=== PATIENT | female | born 1995 | race American Indian/Alaskan Native ===

== ENCOUNTER 2019-01-13 02:57 | Emergency (ER) | payer OTHER ==
[2019-01-13 03:09] VITALS: BP 112/79
--- NOTE | 2019-01-13 04:39 | Emergency Department Report ---
ED Eye Problem HPI - General Chief complaint: Eye Problems Stated complaint: EYE PAIN Time Seen by Provider: 01/13/19 03:40 Source: patient Mode of arrival: Ambulatory Limitations: No Limitations - History of Present Illness Initial comments: Pt is a 23 yo female who presents to the ED with c/o right eye pain that began two days ago. She states she has a stye to the right lower eyelid. she states last week she had one to the upper eyelid and she used OTC eye drops and it resolved on its own. She states she has noticed a small amount of eye drainage. She denies any eyelash matting, fever, or vision changes. She denies getting anything into the eye. she has no PMHx. she denies any medication allergies. she denies any daily medications. - Related Data Previous Rx's Medication Instructions Recorded Last Taken Type Erythromycin [Erythromycin Ophth 0.5 inch OD QID 5 Days #1 tube 01/13/19 Unknown Rx Oint] diphenhydrAMINE [Benadryl CAP] 25 mg PO Q8HR PRN #14 capsule 01/13/19 Unknown Rx Allergies Allergy/AdvReac Type Severity Reaction Status Date / Time No Known Allergies Allergy Unverified 11/21/15 14:59 ED Review of Systems ROS: Stated complaint: EYE PAIN Other details as noted in HPI Comment: All other systems reviewed and negative ED Past Medical Hx - Past Medical History Previous Medical History?: Yes Hx Asthma: Yes (child) - Surgical History Past Surgical History?: No - Social History Smoking Status: Current Every Day Smoker Substance Use Type: Alcohol - Medications Home Medications: Home Medications Medication Instructions Recorded Confirmed Last Taken Type Erythromycin [Erythromycin Ophth 0.5 inch OD QID 5 Days #1 tube 01/13/19 Unknown Rx Oint] diphenhydrAMINE [Benadryl CAP] 25 mg PO Q8HR PRN #14 capsule 01/13/19 Unknown Rx ED Physical Exam - General Limitations: No Limitations General appearance: alert, in no apparent distress - Head Head exam: Present: atraumatic, normocephalic - Eye Eye exam: Present: PERRL, other (small area of induration to the right lower eyelid, no fluctuance, small amount of surrouding edema to the right lower eyelid, small amount of purulent eye drainage in the corner of the eye). Absent: conjunctival injection - Respiratory Respiratory exam: Absent: respiratory distress - Neurological Exam Neurological exam: Present: alert, oriented X3 - Psychiatric Psychiatric exam: Present: normal affect, normal mood - Skin Skin exam: Present: warm, dry, intact ED Course Vital Signs 01/13/19 01/13/19 03:04 04:50 Temperature 97 F L Pulse Rate 71 69 Respiratory 18 15 Rate Blood Pressure 112/79 O2 Sat by Pulse 100 Oximetry ED Medical Decision Making - Medical Decision Making on examination pt has an external hordeolum of the right lower lid. pt given erythromycin ointment. advised to use as prescribed. pt given benadryl for small amount of surrounding swelling of the lower lid. advised to follow up with PCP in the next 2-3 days for reevaluation. return to the emergency room for any new or worsening symptoms. pt given list of community resources. Critical care attestation.: If time is entered above; I have spent that time in minutes in the direct care of this critically ill patient, excluding procedure time. ED Disposition Clinical Impression: Hordeolum external Qualifiers: Laterality: right Eyelid: lower Qualified Code(s): H00.012 - Hordeolum externum right lower eyelid Disposition: DC-01 TO HOME OR SELFCARE Is pt being admited?: No Does the pt Need Aspirin: No Condition: Stable Instructions: Sindy (ED) Additional Instructions: Please use all medication as prescribed. please follow up with a primary care doctor in the next 2-3 days for reevaluation. return to the emergency room for any new or worsening symptoms. Prescriptions: diphenhydrAMINE [Benadryl CAP] 25 mg PO Q8HR PRN #14 capsule PRN Reason: swelling Erythromycin [Erythromycin Ophth Oint] 0.5 inch OD QID 5 Days #1 tube Referrals: TIAGO MATHEWS MD [Primary Care Provider] - 2-3 Days Forms: Work/School Release Form(ED) Time of Disposition: 04:39 Print Language: WELSH
== END 2019-01-13 04:50 | disposition home or self-care (01) ==
LOC: ED 02:57
DX: H00.012 Hordeolum externum right lower eyelid (principal); F17.200 Nicotine dependence, unspecified, uncomplicated; J45.909 Unspecified asthma, uncomplicated

== ENCOUNTER 2019-03-29 14:59 | Emergency (ER) | payer OTHER ==
[2019-03-29 15:40] VITALS: BP 105/62
--- NOTE | 2019-03-29 15:41 | Event Note ---
ED Screening Note Date of service: 03/29/19 Time: 15:37 ED Screening Note: 23 y/o female comes in for lower abd pain times 2 week. No pain with urination, Urinary frequency. No vag bleeding, No vaginal discharge. LMP 02/11/19. +home preg test. This initial assessment/diagnostic orders/clinical plan/treatment(s) is/are subject to change based on patients health status, clinical progression and re- assessment by fellow clinical providers in the ED. Further treatment and workup at subsequent clinical providers discretion. Patient/guardian urged not to elope from the ED as their condition may be serious if not clinically assessed and managed. Initial orders include:
[2019-03-29 16:02] LABS: Bilirubin,Urine NEG (Negative); Blood,Urine NEG (Negative); Color,Urine Straw (Yellow); Protein,Urine <15 mg/dL mg/dL (Negative); Urobilinogen,Urine < 2.0 mg/dL (<2.0)
--- NOTE | 2019-03-29 17:23 | Emergency Department Report ---
HPI - General Chief Complaint: Abdominal Pain Time Seen by Provider: 03/29/19 15:37 - HPI HPI: 23 YO COMES TO ER WITH 2 W OF OFF AND ON CRAMPS. LMP 6-21. POS HOME PREG TEST. G1. NO VAG BLEEDING OR DISCHARGE. NO DYSURIA OR FREQUENCY. THE PT ADDS TODAY SHE IS NOT EVEN HAVING CRAMPS SHE JUST WANTS TO MAKE SURE SHE IS . ED Past Medical Hx - Past Medical History Previous Medical History?: Yes Hx Asthma: Yes (child) - Surgical History Past Surgical History?: No - Family History Family history: no significant - Social History Smoking Status: Never Smoker Substance Use Type: None - Medications Home Medications: Home Medications Medication Instructions Recorded Confirmed Last Taken Type Ondansetron [Zofran Odt] 4 mg PO Q8HR PRN #10 tab.rapdis 03/29/19 Unknown Rx ED Review of Systems ROS: Stated complaint: ABD PAIN/POSSIBLE Other details as noted in HPI Comment: All other systems reviewed and negative Physical Exam - Physical Exam Vital Signs: Vital Signs 03/29/19 03/29/19 15:37 17:08 Temperature 98.2 F Pulse Rate 72 Respiratory 18 16 Rate Blood Pressure 105/62 O2 Sat by Pulse 100 Oximetry ED Course Vital Signs 03/29/19 03/29/19 15:37 17:08 Temperature 98.2 F Pulse Rate 72 Respiratory 18 16 Rate Blood Pressure 105/62 O2 Sat by Pulse 100 Oximetry ED Medical Decision Making - Radiology Data Radiology results: report reviewed, image reviewed - Medical Decision Making hcg pending 1730 however ultrasound has been completed us noted no vag bleeding dc home with obgyn follow up in 48 hours. Vital Signs 03/29/19 03/29/19 15:37 17:08 Temperature 98.2 F Pulse Rate 72 Respiratory 18 16 Rate Blood Pressure 105/62 O2 Sat by Pulse 100 Oximetry - Differential Diagnosis CONFIRM PREG/RO AB Critical care attestation.: If time is entered above; I have spent that time in minutes in the direct care of this critically ill patient, excluding procedure time. ED Disposition Clinical Impression: Disposition: DC-01 TO HOME OR SELFCARE Is pt being admited?: No Does the pt Need Aspirin: No Condition: Stable Instructions: (ED) Additional Instructions: PELVIC REST NO DRUGS OR ALCOHOL OVER THE COUNTER VITAMIN DAILY ZOFRAN GIVEN TODAY FOR NAUSEA FOLLOW UP WITH OBGYN IN 48 HOURS FOR RECHECK LET THEM KNOW YOU WERE HERE TODAY REFERRAL BELOW Prescriptions: Ondansetron [Zofran Odt] 4 mg PO Q8HR PRN #10 tab.rapdis PRN Reason: Vomiting Referrals: CHANEL THACKER MD [Staff Physician] - 3-5 Days Time of Disposition: 17:35
--- NOTE | 2019-03-29 17:30 | Ultrasound Report ---
US OB transvaginal, US OB <= 14 weeks fetus INDICATION / CLINICAL INFORMATION: PELVIC PAIN. COMPARISON: None available. FINDINGS: Transabdominal and transvaginal imaging was performed. There is an intrauterine gestational sac with yolk sac and pole. [place]-rump length is 2 mm (5 w eeks, 5 days). Embryonic cardiac activity was not well assessed. The semiconductor wafer inspector measured this at 67 bpm. No subchorionic hemorrhage is seen. There is a 3.6 cm left ovarian cyst. The left ovary is otherwise unremarkable. Right ovary is unremar kable. Flow is seen to both ovaries. There is a small amount of free fluid in the cul-de-sac. IMPRESSION: 1. Single intrauterine with sonographic gestational age of 5 weeks, 5 days. What is recorde d as embryonic heart rate is 67 bpm. This is abnormally low. This could be artifactual, and in fact b e a maternal heart rate. Short-term sonographic follow-up is recommended. 2. 3.6 cm left ovarian cyst. 3. Small amount of free fluid in the cul-de-sac. Signer Name: Marshal Bazzi MD Signed: 03/29/2019 5:26 PM Workstation Name: [id number]
--- NOTE | 2019-03-29 17:30 | Ultrasound Report ---
US OB transvaginal, US OB <= 14 weeks fetus INDICATION / CLINICAL INFORMATION: PELVIC PAIN. COMPARISON: None available. FINDINGS: Transabdominal and transvaginal imaging was performed. There is an intrauterine gestational sac with yolk sac and pole. [place]-rump length is 2 mm (5 w eeks, 5 days). Embryonic cardiac activity was not well assessed. The floor trader measured this at 67 bpm. No subchorionic hemorrhage is seen. There is a 3.6 cm left ovarian cyst. The left ovary is otherwise unremarkable. Right ovary is unremar kable. Flow is seen to both ovaries. There is a small amount of free fluid in the cul-de-sac. IMPRESSION: 1. Single intrauterine with sonographic gestational age of 5 weeks, 5 days. What is recorde d as embryonic heart rate is 67 bpm. This is abnormally low. This could be artifactual, and in fact b e a maternal heart rate. Short-term sonographic follow-up is recommended. 2. 3.6 cm left ovarian cyst. 3. Small amount of free fluid in the cul-de-sac. Signer Name: Marshal Bazzi MD Signed: 03/29/2019 5:26 PM Workstation Name: [id number]
== END 2019-03-29 18:33 | disposition home or self-care (01) ==
LOC: ED 14:59
DX: O26.891 Other specified pregnancy related conditions, first trimester (principal); Z3A.01 Less than 8 weeks gestation of pregnancy
CPT/HCPCS: 36415; 76801; 76817; 81001; 84702

== ENCOUNTER 2019-04-07 19:28 | Emergency (ER) | payer MEDICAID ==
--- NOTE | 2019-04-08 01:48 | Ultrasound Report ---
OB Ultrasound HISTORY: follow up US. TECHNIQUE: Grayscale and color Doppler imaging performed. COMPARISON: OB ultrasound from 03/29/2019 FINDINGS: There is a single intrauterine gestation with crown-rump length of 1.5 cm corresponding wit h an EGA of 7 weeks and 5 days. Heart rate is 143 bpm. No acute abnormality identified. No pelvic free fluid. Right ovary measures 2.9 x 1.9 x 2.2 cm. Left ovary measures 5.0 x 5.1 x 4.1 cm with a 3.2 cm simple cyst noted. IMPRESSION: 1. Single viable intrauterine gestation as above. 2. Simple left ovarian cyst. Signer Name: Subhash Mahmood MD Signed: 04/08/2019 1:44 AM Workstation Name: [id number]
--- NOTE | 2019-04-08 02:23 | Emergency Department Report ---
ED General Adult HPI - General Chief complaint: Dental/Oral Stated complaint: ULTRASOUND CHECK UP/TOOTHACHE Time Seen by Provider: 04/08/19 00:06 Source: patient Mode of arrival: Ambulatory Limitations: No Limitations - History of Present Illness Initial comments: Patient presents for repeat ultrasound and hCG to check diagnosed with single IUP on 04/03 however, had decreased heart rate was advised to return to ED for repeat in 48 hours . Patient denies abdominal pain, no cramping, no bleeding, no vaginal discharge at this time . History secondary complaint of infected dental care . No fever, no chills. Pain is 3/10 Onset/Timin -: week(s) Radiation: non-radiation Severity scale (0 -10): 0 Improves with: none Worsens with: none Associated Symptoms: denies other symptoms Treatments Prior to Arrival: none - Related Data Previous Rx's Medication Instructions Recorded Last Taken Type Ondansetron [Zofran Odt] 4 mg PO Q8HR PRN #10 tab.rapdis 03/29/19 Unknown Rx Acetaminophen [Acetaminophen TAB] 650 mg PO Q6HR PRN #30 tablet 04/08/19 Unknown Rx Chlorhexidine Mouthwash [Peridex] 15 ml MM BID #1 bottle 04/08/19 Unknown Rx Clindamycin [Clindamycin CAP] 300 mg PO Q8H 10 Days #30 cap 04/08/19 Unknown Rx Allergies Allergy/AdvReac Type Severity Reaction Status Date / Time No Known Allergies Allergy Unverified 11/21/15 14:59 ED Review of Systems ROS: Stated complaint: ULTRASOUND CHECK UP/TOOTHACHE Other details as noted in HPI Constitutional: denies: chills, fever Eyes: denies: eye pain, eye discharge, vision change ENT: dental pain. denies: ear pain, throat pain Respiratory: denies: cough, shortness of breath, wheezing Cardiovascular: denies: chest pain, palpitations Endocrine: no symptoms reported Gastrointestinal: denies: abdominal pain, nausea, diarrhea Genitourinary: denies: urgency, dysuria, discharge Musculoskeletal: denies: back pain, joint swelling, arthralgia Skin: denies: rash, lesions Neurological: denies: headache, weakness, paresthesias Psychiatric: denies: anxiety, depression Hematological/Lymphatic: denies: easy bleeding, easy bruising ED Past Medical Hx - Past Medical History Previous Medical History?: Yes Hx Asthma: Yes (child) - Surgical History Past Surgical History?: No - Social History Smoking Status: Never Smoker Substance Use Type: None - Medications Home Medications: Home Medications Medication Instructions Recorded Confirmed Last Taken Type Ondansetron [Zofran Odt] 4 mg PO Q8HR PRN #10 tab.rapdis 03/29/19 Unknown Rx Acetaminophen [Acetaminophen TAB] 650 mg PO Q6HR PRN #30 tablet 04/08/19 Unknown Rx Chlorhexidine Mouthwash [Peridex] 15 ml MM BID #1 bottle 04/08/19 Unknown Rx Clindamycin [Clindamycin CAP] 300 mg PO Q8H 10 Days #30 cap 04/08/19 Unknown Rx ED Physical Exam - General Limitations: No Limitations General appearance: alert, in no apparent distress - Head Head exam: Present: atraumatic, normocephalic, normal inspection - Eye Eye exam: Present: normal appearance, PERRL, EOMI Pupils: Present: normal accommodation - ENT ENT exam: Present: normal exam, mucous membranes moist, TM's normal bilaterally, normal external ear exam - Expanded ENT Exam Expanded Ear exam: Present: normal external inspection Mouth exam: Absent: trismus Teeth exam: Present: dental caries, dental tenderness # (16) - Neck Neck exam: Present: normal inspection, full ROM. Absent: tenderness, meningismus, lymphadenopathy, thyromegaly - Respiratory Respiratory exam: Present: normal lung sounds bilaterally. Absent: respiratory distress, wheezes, stridor, chest wall tenderness - Cardiovascular Cardiovascular Exam: Present: regular rate, normal rhythm, normal heart sounds. Absent: systolic murmur, diastolic murmur, rubs, gallop - GI/Abdominal GI/Abdominal exam: Present: soft, normal bowel sounds. Absent: distended, tenderness, guarding, rebound, rigid, bruit, hernia - Rectal Rectal exam: Present: deferred - Extremities Exam Extremities exam: Present: normal inspection, full ROM, normal capillary refill. Absent: tenderness, pedal edema, joint swelling, calf tenderness - Back Exam Back exam: Present: normal inspection, full ROM. Absent: tenderness, CVA tenderness (R), CVA tenderness (L), muscle spasm, paraspinal tenderness, vertebral tenderness, rash noted - Neurological Exam Neurological exam: Present: alert, oriented X3, CN II-XII intact, normal gait, reflexes normal. Absent: motor sensory deficit - Psychiatric Psychiatric exam: Present: normal affect, normal mood - Skin Skin exam: Present: warm, dry, intact, normal color. Absent: rash ED Course Vital Signs 04/07/19 19:50 Temperature 98 F Pulse Rate 83 Respiratory 14 Rate Blood Pressure 104/60 O2 Sat by Pulse 100 Oximetry ED Medical Decision Making - Radiology Data Radiology results: report reviewed, image reviewed OB Ultrasound HISTORY: follow up US. TECHNIQUE: Grayscale and color Doppler imaging performed. COMPARISON: OB ultrasound from 03/29/2019 FINDINGS: There is a single intrauterine gestation with crown-rump length of 1.5 cm corresponding with an EGA of 7 weeks and 5 days. Heart rate is 143 bpm. No acute abnormality identified. No pelvic free fluid. Right ovary measures 2.9 x 1.9 x 2.2 cm. Left ovary measures 5.0 x 5.1 x 4.1 cm with a 3.2 cm simple cyst noted. IMPRESSION: 1. Single viable intrauterine gestation as above. 2. Simple left ovarian cyst. Signer Name: Subhash Mahmood MD Signed: 04/08/2019 1:44 AM Workstation Name: [id number] Transcribed By: CANDIS Dictated By: Subhash Mahmood MD Electronically Authenticated By: Subhash Mahmood MD Signed Date/Time: 04/08/19143 DD/ 1 TD/TT: - Medical Decision Making This is a single IUP , heart rate is 146 bpm there is no vaginal bleeding, no vaginal discharge. No abdominal pain, no cramping dental caries noted #16, no obvious abscess . Plan DC'd home . Prescription for clindamycin, Tylenol Peridex mouth rinse. Follow-up with dentist in 2-3 days. Follow-up with [facility] in 2-3 days . Patient verbalized agreement and understanding of discharge plan DC'd to home in stable condition at this time Critical care attestation.: If time is entered above; I have spent that time in minutes in the direct care of this critically ill patient, excluding procedure time. ED Disposition Clinical Impression: Dental caries Qualifiers: Weeks of gestation: less than 8 weeks Qualified Code(s): Z3A.01 - Less than 8 weeks gestation of Disposition: DC-01 TO HOME OR SELFCARE Is pt being admited?: No Does the pt Need Aspirin: No Condition: Stable Instructions: (ED), Dental Caries (ED) Additional Instructions: OB Ultrasound HISTORY: follow up US. TECHNIQUE: Grayscale and color Doppler imaging performed. COMPARISON: OB ultrasound from 03/29/2019 FINDINGS: There is a single intrauterine gestation with crown-rump length of 1.5 cm corresponding with an EGA of 7 weeks and 5 days. Heart rate is 143 bpm. No acute abnormality identified. No pelvic free fluid. Right ovary measures 2.9 x 1.9 x 2.2 cm. Left ovary measures 5.0 x 5.1 x 4.1 cm with a 3.2 cm simple cyst noted. IMPRESSION: 1. Single viable intrauterine gestation as above. 2. Simple left ovarian cyst. Signer Name: Subhash Mahmood MD Signed: 04/08/2019 1:44 AM Workstation Name: [id number] Transcribed By: Dictated By: Subhash Mahmood MD Electronically Authenticated By: Subhash Mahmood MD Signed Date/Time: 04/08/19143 DD/ 1 TD/TT: Prescriptions: Acetaminophen [Acetaminophen TAB] 650 mg PO Q6HR PRN #30 tablet PRN Reason: Pain Clindamycin [Clindamycin CAP] 300 mg PO Q8H 10 Days #30 cap Chlorhexidine Mouthwash [Peridex] 15 ml MM BID #1 bottle Referrals: [facility] [Provider Group] - 3-5 Days Forms: Work/School Release Form(ED) Time of Disposition: 02:27
[2019-04-08 05:02] VITALS: BP 111/62
== END 2019-04-08 02:50 | disposition home or self-care (01) ==
LOC: ED 19:28
DX: O99.611 Diseases of the digestive system complicating pregnancy, first trimester (principal); K02.9 Dental caries, unspecified; O99.511 Diseases of the respiratory system complicating pregnancy, first trimester; J45.909 Unspecified asthma, uncomplicated; Z79.899 Other long term (current) drug therapy; Z3A.00 Weeks of gestation of pregnancy not specified
CPT/HCPCS: 36415; 76801; 84702; 99284

== ENCOUNTER 2019-10-13 21:33 | Outpatient (CLI) | payer MEDICAID ==
[2019-10-13] MEDS ORDERED: LACTATED RINGERS 1,000 ML ONE ×2 (22:43→23:50)
[2019-10-13] MEDS ORDERED: LACTATED RINGERS 500 ML IV ONE (23:00)
[2019-10-14 00:21] LABS: Bilirubin,Urine NEG (Negative); Blood,Urine SM (Negative); Color,Urine Yellow (Yellow); Hyaline Casts,Urine 1 /LPF; Mucus,Urine FEW /HPF; Protein,Urine <15 mg/dL mg/dL (Negative); Urobilinogen,Urine < 2.0 mg/dL (<2.0)
[2019-10-14 00:30] LABS: Amphetamine Screen,Urine PRESUMPTIVE NEGATIVE; Benzodiazepines Screen,Urine PRESUMPTIVE NEGATIVE; Cocaine Screen,Urine PRESUMPTIVE NEGATIVE; Methadone Screen,Urine PRESUMPTIVE NEGATIVE; Opiate Screen,Urine PRESUMPTIVE NEGATIVE
--- NOTE | 2019-10-14 01:04 | Ultrasound Report ---
Limited OB ultrasound INDICATION: Clinical suspicion of abruption FINDINGS: There is a single intrauterine in a cephalic presentation. Amniotic fluid index i s 14.3 cm. The placenta is located anteriorly and to the right. There is grade 2. No abruption is seen. heart rate is 130 bpm. IMPRESSION: No abruption is seen. Signer Name: Emmett Brooke MD Signed: 10/14/2019 1:00 AM Workstation Name: [id number]
[2019-10-14 01:12] LABS: Cannabinoid Screen,Urine PRESUMPTIVE POSITIVE
[2019-10-14 09:11] VITALS: BP 116/79
== END 2019-10-14 09:10 | disposition home or self-care (01) ==
LOC: EDBD 21:33 → TRG 21:33 → LD 21:36 → TRG 10-14 09:10
PROVIDERS: ATTEND Obstetrics & Gynecology
DX: O26.893 Other specified pregnancy related conditions, third trimester (principal); R10.817 Generalized abdominal tenderness; O47.03 False labor before 37 completed weeks of gestation, third trimester; O99.513 Diseases of the respiratory system complicating pregnancy, third trimester; J45.909 Unspecified asthma, uncomplicated; O99.323 Drug use complicating pregnancy, third trimester; F12.90 Cannabis use, unspecified, uncomplicated; Z3A.34 34 weeks gestation of pregnancy
CPT/HCPCS: 76815; 80307; 81001; 96360; J7120

== ENCOUNTER 2020-08-22 12:11 | Emergency (ER) | payer MEDICAID ==
[2020-08-22 12:19] VITALS: BP 127/72
== END 2020-08-22 16:05 | disposition left against medical advice (07) ==
LOC: ED 12:11
DX: K08.89 Other specified disorders of teeth and supporting structures (principal); Z53.21 Procedure and treatment not carried out due to patient leaving prior to being seen by health care provider

== ENCOUNTER 2021-02-12 09:30 | Inpatient (IN) | payer MEDICAID ==
[2021-02-12] MEDS ORDERED: AMPICILLIN/NS 2 GM/100 ML 2 GM/100 ML BAG IV ONE ×2 (10:20→10:27)
[2021-02-12] MEDS ORDERED: TERBUTALINE 1 MG/1 ML INJ SUB-Q PRN (10:27)
[2021-02-12] MEDS ORDERED: OXYTOCIN 10 UNIT/1 ML INJ IM PRN (10:27)
[2021-02-12] MEDS ORDERED: LIDOCAINE (2%) 20 MG/1 ML VIAL 20 ML MDV INFILTRATI ONE (10:27)
[2021-02-12] MEDS ORDERED: MINERAL OIL 30 ML ORAL LIQD PO PRN (10:27)
[2021-02-12] MEDS ORDERED: LOPERAMIDE 2 MG CAP PO PRN (10:27)
[2021-02-12] MEDS ORDERED: miSOPROStol 200 MCG TAB PR PRN (10:27)
[2021-02-12] MEDS ORDERED: ePHEDrine SULFATE 50 MG/1 ML INJ IV PRN (10:27)
[2021-02-12] MEDS ORDERED: METHYLERGONOVINE MALEATE 0.2 MG/ML VIAL IM PRN (10:27)
[2021-02-12] MEDS ORDERED: CARBOPROST TROMETHAMINE 250 MCG/1 ML INJ IM PRN (10:27)
[2021-02-12] MEDS ORDERED: LACTATED RINGERS 1,000 ML IV SCH (10:30)
[2021-02-12] MEDS ORDERED: OXYTOCIN DRIP 30 UNITS/500 ML BAG IV SCH ×2 (11:00)
[2021-02-12] MEDS ORDERED: IBUPROFEN 600 MG TAB PO PRN (12:40)
[2021-02-12] MEDS ORDERED: diphenhydrAMINE 25 MG CAP PO PRN (13:15)
[2021-02-12] MEDS ORDERED: WITCH HAZEL/ GLYCERIN PAD TP PRN (13:15)
[2021-02-12] MEDS ORDERED: LANOLIN/ZINC/DIMETHICONE (LANSINOH) 7 GM TP PRN (13:15)
[2021-02-12] MEDS ORDERED: PROMETHAZINE 25 MG RECT SUPP PR PRN (13:15)
[2021-02-12] MEDS ORDERED: MAGNESIUM HYDROXIDE (MOM) ORAL LIQD UDC PO PRN (13:15)
[2021-02-12] MEDS ORDERED: PROMETHAZINE 25 MG TAB PO PRN (13:15)
[2021-02-12] MEDS ORDERED: ONDANSETRON 4 MG/2 ML INJ IV PRN (13:15)
[2021-02-12 13:59] LABS: Hematocrit 31.8 % (30.3-42.9); Hemoglobin 10.2 gm/dl (10.1-14.3); Mean Corpuscular HGB Conc 32 % (30-34); Mean Corpuscular Volume 87 fl (79-97); Platelet Count 166 K/mm3 (140-440); Red Blood Count 3.65 M/mm3 (3.65-5.03); Red Cell Distribution Width 14.8 % (13.2-15.2)
[2021-02-12 14:15] LABS: Amphetamine Screen,Urine Negative; Benzodiazepines Screen,Urine Negative; Bilirubin,Urine NEG (Negative); Blood,Urine LG (Negative); Cocaine Screen,Urine Negative; Color,Urine Red (Yellow); Methadone Screen,Urine Negative; Opiate Screen,Urine Negative; RBC,Urine > 182.0 /HPF (0.0-6.0); Urobilinogen,Urine < 2.0 mg/dL (<2.0); WBC,Urine > 182.0 /HPF (0.0-6.0)
[2021-02-12 14:31] LABS: Cannabinoid Screen,Urine Positive
[2021-02-12 15:34] LABS: Total Cells Counted 100
[2021-02-12 15:35] LABS: RBC Morphology Normal
[2021-02-12 18:19] LABS: HCG,Quantitative 16337 mIU/mL (0-4)
[2021-02-12 19:09] LABS: Hepatitis C Virus Antibody Reactive (NonReactive)
[2021-02-12] MEDS: IBUPROFEN 600 MG TAB PO SCH (20:03)
--- NOTE | 2021-02-12 20:32 | History and Physical Report ---
History of Present Illness Date of examination: 02/12/21 Date of admission: 02/12/21 10:27 Chief complaint: labor Past History - Obstetrical History Expected Date of Delivery: 03/03/21 Actual Gestation: 37 Week(s) 2 Day(s) : 2 Medications and Allergies Allergies Allergy/AdvReac Type Severity Reaction Status Date / Time No Known Allergies Allergy Verified 02/12/21 11:31 Home Medications Medication Instructions Recorded Confirmed Last Taken Type Ondansetron [Zofran Odt] 4 mg PO Q8HR PRN #10 tab.rapdis 03/29/19 02/12/21 Unknown Rx Acetaminophen [Acetaminophen TAB] 650 mg PO Q6HR PRN #30 tablet 04/08/19 02/12/21 Unknown Rx Chlorhexidine Mouthwash [Peridex] 15 ml MM BID #1 bottle 04/08/19 02/12/21 Unknown Rx Clindamycin [Clindamycin CAP] 300 mg PO Q8H 10 Days #30 cap 04/08/19 02/12/21 Unknown Rx Active Meds: Active Medications Bisacodyl (Bisacodyl 10 Mg Rect Supp) 10 mg SC BID PRN PRN Reason: Constipation Carboprost Tromethamine (Carboprost Tromethamine 250 Mcg/1 Ml Inj) 250 mcg IM ONCE PRN PRN Reason: Uterine Bleeding Diphenhydramine HCl (Diphenhydramine 25 Mg Cap) 25 mg PO Q6H PRN PRN Reason: Itching Ephedrine Sulfate (Ephedrine Sulfate 50 Mg/1 Ml Inj) 10 mg IV Q2M PRN PRN Reason: Hypotension Oxytocin/Sodium Chloride (Pitocin/Ns 30 Unit/500ml) 30 units in 500 mls @ 2 mls/hr IV TITR ARIS; Protocol Lactated Ringer's (Lactated Ringers) 1,000 mls @ 125 mls/hr IV DIRECT ARIS Last Admin: 02/12/21 10:20 Dose: 125 mls/hr Documented by: Oxytocin/Sodium Chloride (Pitocin/Ns 30 Unit/500ml) 30 units in 500 mls @ 40 mls/hr IV TITR ARIS; Protocol Last Admin: 02/12/21 12:20 Dose: 40 ml/hr, 40 mls/hr Documented by: Ibuprofen (Ibuprofen 600 Mg Tab) 600 mg PO Q6H ARIS Last Admin: 02/12/21 20:03 Dose: 600 mg Documented by: Loperamide HCl (Loperamide 2 Mg Cap) 2 mg PO ONCE PRN PRN Reason: give with Hemabate Magnesium Hydroxide (Magnesium Hydroxide (Mom) Oral Liqd Udc) 30 ml PO HS PRN PRN Reason: Constipation Methylergonovine Maleate (Methylergonovine Maleate 0.2 Mg/Ml Vial) 0.2 mg IM ONCE PRN PRN Reason: Uterine Bleeding Mineral Oil (Mineral Oil 30 Ml Oral Liqd) 30 ml PO QHS PRN PRN Reason: Constipation Last Admin: 02/12/21 11:00 Dose: 30 ml Documented by: Misoprostol (Misoprostol 200 Mcg Tab) 800 mcg SC ONCE PRN PRN Reason: Uterine Bleeding Multi-Ingredient Ointment (Lanolin/Zinc/Dimethicone (Lansinoh) 7 Gm) 1 applic TP PRN PRN PRN Reason: Sore Nipples Ondansetron HCl (Ondansetron 4 Mg/2 Ml Inj) 4 mg IV Q8H PRN PRN Reason: Nausea And Vomiting Oxytocin (Oxytocin 10 Unit/1 Ml Inj) 10 unit IM ONCE PRN PRN Reason: Uterine Bleeding Promethazine HCl (Promethazine 25 Mg Rect Supp) 25 mg SC Q6H PRN PRN Reason: Nausea And Vomiting Promethazine HCl (Promethazine 25 Mg Tab) 25 mg PO Q6H PRN PRN Reason: Nausea And Vomiting Sodium Chloride (Sodium Chloride 0.9% 10 Ml Flush Syringe) 10 ml IV PRN NR Stop: 02/13/21 13:59 Terbutaline Sulfate (Terbutaline 1 Mg/1 Ml Inj) 0.25 mg SUB-Q ONCE PRN PRN Reason: Hyperstimulation/Hypertonicity Witch Radha/Glycerin (Witch Radha/ Glycerin Pad) 1 each TP PRN PRN PRN Reason: Hemorrhoid/cleansing/soothing - Vital Signs Vital signs: Vital Signs Temp 98.3 F 02/12/21 10:30 Temp Pulse Resp BP Pulse Ox 98.3 F 64 18 123/83 100 02/12/21 16:15 02/12/21 16:15 02/12/21 16:15 02/12/21 16:15 02/12/21 16:15 Results Result Diagrams: 02/12/21 10:27 Abnormal lab results 02/12/21 02/12/21 Range/Units 13:56 15:52 HCG, Quant 19068 H (0-4) mIU/mL Urine pH 8.0 H (5.0-7.0) Urine WBC (Auto) > 182.0 H (0.0-6.0) /HPF Hepatitis C Antibody Reactive A (NonReactive) All other labs normal. Assessment and Plan pt delivered precipitously on admission without complication(see delivery note) Dee Victoria MD
[2021-02-13] MEDS: IBUPROFEN 600 MG TAB PO SCH ×3 (05:07→18:12)
[2021-02-13 06:24] LABS: Hematocrit 29.5 % (30.3-42.9); Hemoglobin 9.3 gm/dl (10.1-14.3)
--- NOTE | 2021-02-13 12:20 | Progress Note ---
Assessment and Plan A: PP Day #1 Asymptomatic Anemia Hepatitis C P: Follow Routine Orders FeSO4 PO BID Counseling: Hepatitis C ID Consult Placed Subjective - Subjective Date of service: 02/13/21 Patient reports: appetite normal, voiding normally, pain well controlled, flatus, ambulating normally, other (Denies Hx of Hepatitis A, B, or C) [place]: doing well, bottle feeding Objective - Vital Signs Latest vital signs: Vital Signs Temp Pulse Resp BP BP Pulse Ox 02/13/21 07:52 97.8 F 76 18 125/90 100 02/13/21 00:00 98.6 F 68 18 115/68 02/12/21 20:46 98.6 F 70 18 124/86 100 02/12/21 16:15 98.3 F 64 18 123/83 100 02/12/21 14:35 97.8 F 71 20 127/72 02/12/21 14:07 98.0 F 62 18 122/77 02/12/21 13:52 57 L 131/79 02/12/21 13:51 66 133/74 02/12/21 13:33 54 L 141/69 02/12/21 13:23 61 159/82 02/12/21 13:07 57 L 131/84 02/12/21 12:52 57 L 125/84 02/12/21 12:37 58 L 131/84 02/12/21 12:22 56 L 129/81 Intake and Output 02/12/21 02/13/21 02/13/21 22:59 06:59 14:59 Intake Total 500 Output Total 1000 Balance -500 Intake: Oral 200 Intake, Free Water 300 Output: Urine 1000 Void 1000 Other: Total, Intake Amount 200 Total, Output Amount 500 # Voids Void 1 1 - Exam Breasts: Present: normal Cardiovascular: Present: Regular rate Lungs: Present: Clear to auscultation, Normal air movement Abdomen: Present: normal appearance, soft, normal bowel sounds Uterus: Present: normal, firm, fundal height below umbilicus Extremities: Present: normal - Labs Labs: Abnormal lab results 02/12/21 02/12/21 02/13/21 Range/Units 13:56 15:52 05:32 Hgb 9.3 L (10.1-14.3) gm/dl Hct 29.5 L (30.3-42.9) % HCG, Quant 95514 H (0-4) mIU/mL Urine pH 8.0 H (5.0-7.0) Urine WBC (Auto) > 182.0 H (0.0-6.0) /HPF Hepatitis C Antibody Reactive A (NonReactive)
[2021-02-13] MEDS: FERROUS SULFATE 325 MG TAB PO SCH (18:15)
[2021-02-14] MEDS: IBUPROFEN 600 MG TAB PO SCH ×4 (00:33→06:55)
[2021-02-14] MEDS: FERROUS SULFATE 325 MG TAB PO SCH ×2 (00:33→10:56)
--- NOTE | 2021-02-14 08:55 | Procedure Note ---
OB Delivery Note - Delivery Date of Delivery: 02/12/21 (late entry ) Surgeon: KATHY BROCK Estimated blood loss: other (372 QBL) - Vaginal Delivery presentation: vertex Delivery position: OA Intrapartum events: no care, precipitous labor- <3hr Delivery induction: AROM Delivery monitor: external FHT, external uterine Route of delivery: Delivery placenta: spontaneous Delivery cord: 3 umbilical vessels Episiotomy: none Delivery laceration: none Anesthesia: none Delivery comments: Pt presented to L&D with c/o uc. SVE 10/100%/1+. AROM and pushing begin. of a live viable female @ 10:44am. Spontaneous delivery of head and shoulders. Infant was placed on mom's chest for skin to skin bonding. Delayed cord clamping while NICU nurse dried and stimulated baby. Cord was clamped x2 and pt's cousin was allowed to cut the cord. Infant was taken to warmer for an asses by NICU nurse. 9/9. Spontaneous delivery of an intact placenta with 3VC. FF@ U2 with fundal massage and IV Pitocin. An exploration of tears revealed none. QBL 372 FW [id number]. Mom and baby was left in stable condition with nurse. - Infant A at 1 minute: 9 at 5 minutes: 9 Gender: Female (FW [id number])
--- NOTE | 2021-02-14 15:23 | Discharge Summary ---
Providers - Providers Date of Admission: 02/12/21 10:27 Date of discharge: 02/14/21 Attending physician: LEONILA LARSEN MD 02/12/21 16:14 Consult to Case Management [CONS] Routine Services Needed at Discharge: [employer] Notified:: [id number] Additional Physician Instructions: Positive THC Limited PNC 02/13/21 11:06 Consult to Infection Control Nurse [CONS] Urgent Reason For Exam: Hep. C Primary care physician: LEONILA LARSEN MD Hospitalization Reason for admission: active labor, IUP at term Delivery: Episiotomy: none Laceration: none Other procedures: none complications: none Discharge diagnosis: IUP at term delivered [place] baby: female Hospital course: Pt had no PNC. [facility] fully dilated and had a precipitous delivery w/o pp complications. See H&P, delivery summary, and pp notes. She was referred to [facility] r/t pos hep C status. Condition at discharge: Stable Disposition: DC-01 TO HOME OR SELFCARE Plan - Discharge Medications Prescriptions: Ibuprofen [Ibu-200] 600 mg PO Q6HR #60 tablet - Provider Discharge Summary Activity: routine, no sex for 6 weeks, no heavy lifting 4 weeks, no strenuous exercise Diet: routine Instructions: routine Additional instructions: [] Smoking cessation referral if applicable(refer to patient education folder for contact #) [] Refer to [facility] Booklet Call your doctor immediately for: * Fever > 100.5 * Heavy vaginal bleeding ( >1 pad per hour) * Severe persistent headache * Shortness of breath * Reddened, hot, painful area to leg or breast * Drainage or odor from incision. * Keep incision clean and dry at all times and follow doctor's instructions regarding bathing/showering - Follow up plan Follow up: LEONILA LARSEN MD [Primary Care Provider] - 6 Weeks (Congratulations! Please call your provider's office to schedule your 6 week follow up appointment. ) Forms: [facility] Discharge Summary, Work/School Excuse Out Patient, Work/School Release Form
[2021-02-14 19:10] VITALS: BP 126/86
== END 2021-02-14 14:35 | disposition home or self-care (01) | DRG 774 ==
LOC: TRG 09:30 → APU 09:32 → TRG 10:27 → LD 10:27 → OB 14:44
PROVIDERS: ADMIT Obstetrics & Gynecology; ATTEND Obstetrics & Gynecology
PROC: 10E0XZZ Delivery of Products of Conception, External Approach (ICD-10-PCS; principal; 2021-02-12)
PROC: 10907ZC Drainage of Amniotic Fluid, Therapeutic from Products of Conception, Via Natural or Artificial Opening (ICD-10-PCS; 2021-02-12)
DX: O62.3 Precipitate labor (principal); O98.42 Viral hepatitis complicating childbirth; O99.02 Anemia complicating childbirth; B19.20 Unspecified viral hepatitis C without hepatic coma; D64.9 Anemia, unspecified; Z20.822 Contact with and (suspected) exposure to COVID-19; Z3A.37 37 weeks gestation of pregnancy; Z37.0 Single live birth
CPT/HCPCS: 36415; 80307; 81001; 84702; 85007; 85014; 85018; 85025; 86592; 86706; 86762; 86803; 86850; 86900; 86901; 87086; 87806; 88307; G0378; J0290; J2590; J7120; U0003

== ENCOUNTER 2022-03-02 14:50 | Outpatient (CLI) | payer MEDICAID ==
[2022-03-02 15:44] VITALS: BP 107/54
[2022-03-02] MEDS ORDERED: ACETAMINOPHEN 325 MG TAB ONE (15:54)
[2022-03-02] MEDS ORDERED: LACTATED RINGERS 1,000 ML ONE (15:54)
[2022-03-02] MEDS ORDERED: METHYLERGONOVINE MALEATE 0.2 MG/ML VIAL IM PRN (15:57)
[2022-03-02] MEDS ORDERED: LACTATED RINGERS 1,000 ML IV SCH (16:00)
[2022-03-02] MEDS ORDERED: LACTATED RINGERS 1,000 ML IV ONE (17:00)
[2022-03-02 18:23] LABS: Hematocrit 20.9 % (30.3-42.9); Hemoglobin 6.6 gm/dl (10.1-14.3); Mean Corpuscular HGB Conc 32 % (30-34); Mean Corpuscular Volume 85 fl (79-97); Platelet Count 182 K/mm3 (140-440); Red Blood Count 2.45 M/mm3 (3.65-5.03); Red Cell Distribution Width 14.6 % (13.2-15.2)
== END 2022-03-02 19:52 | disposition home or self-care (01) ==
LOC: TRG 14:50 → APU 14:51 → TRG 19:52
PROVIDERS: ATTEND Obstetrics & Gynecology
DX: O26.893 Other specified pregnancy related conditions, third trimester (principal); M54.50 Low back pain, unspecified; R50.9 Fever, unspecified; Z3A.37 37 weeks gestation of pregnancy
CPT/HCPCS: 36415; 85027; 96360; 96361; J7120